=== PATIENT | male | born 1970 | race Caucasian/White ===

== ENCOUNTER 2019-04-22 09:17 | Emergency (ER) | payer BC, OTHER ==
--- NOTE | 2019-04-22 10:02 | EDM.PDOC ---
ED HPI GENERAL MEDICAL PROBLEM - General Chief Complaint: Lower Extremity Injury/Pain Stated Complaint: RIGHT ANKLE INJURY Time Seen by Provider: 04/22/19 09:38 Source of Information: Reports: Patient History Limitations: Reports: No Limitations - History of Present Illness INITIAL COMMENTS - FREE TEXT/NARRATIVE: The patient presents with right ankle pain. He was at work this morning and was walking around his truck on uneven ground and he inverted his right ankle. He did fall but only injured his ankle. He has swelling and pain to the ankle. He could not walk on it after. Onset: Sudden Duration: Hour(s): Location: Reports: Lower Extremity, Right (ankle) Quality: Reports: Sharp Severity: Moderate Improves with: Reports: Immobilization Worsens with: Reports: Heat Therapy Context: Reports: Trauma (Inverted right ankle) Associated Symptoms: Reports: No Other Symptoms Right Ankle Pain Score (Numeric/FACES): 4 - Related Data Allergies Allergy/AdvReac Type Severity Reaction Status Date / Time No Known Allergies Allergy Verified 04/22/19 09:35 Home Meds: Home Meds Carvedilol [Coreg] 6.25 mg PO DAILY 04/22/19 [History] Fluticasone Furoate [Flonase Sensimist] 1 spray NASBOTH BID 04/22/19 [History] Lisinopril [Prinivil] 20 mg PO DAILY 04/22/19 [History] Olopatadine [Patanol 0.1% Ophth Soln] 1 drop EYEBOTH DAILY 04/22/19 [History] Rosuvastatin [Crestor] 20 mg PO DAILY 04/22/19 [History] Testosterone Cypionate 200 mg IM ASDIRECTED 04/22/19 [History] buPROPion HCl [Wellbutrin SR] 150 mg PO Q12H 04/22/19 [History] Past Medical History Cardiovascular History: Reports: High Cholesterol, Hypertension Musculoskeletal History: Reports: Fracture Oncologic (Cancer) History: Reports: Other (See Below) Other Oncologic History: testicular cancer. - Infectious Disease History Infectious Disease History: Reports: Chicken Pox - Past Surgical History HEENT Surgical History: Reports: Tonsillectomy Social & Family History - Tobacco Use Smoking Status *Q: Current Every Day Smoker Years of Tobacco use: 30 Packs/Tins Daily: 1 Second Hand Smoke Exposure: Yes - Caffeine Use Caffeine Use: Reports: Coffee - Recreational Drug Use Recreational Drug Use: No Review of Systems - Review of Systems Review Of Systems: See Below Constitutional: Reports: No Symptoms Eyes: Reports: No Symptoms Ears: Reports: No Symptoms Nose: Reports: No Symptoms Mouth/Throat: Reports: No Symptoms Respiratory: Reports: No Symptoms Cardiovascular: Reports: No Symptoms GI/Abdominal: Reports: No Symptoms Genitourinary: Reports: No Symptoms Musculoskeletal: Reports: Other (right ankle swelling and pain) ED EXAM, GENERAL - Physical Exam Exam: See Below Exam Limited By: No Limitations General Appearance: Alert, No Apparent Distress Ears: Normal External Exam Nose: Normal Inspection Head: Atraumatic, Normocephalic Neck: Normal Inspection Respiratory/Chest: No Respiratory Distress Extremities: Other (Moderate edema to the right lateral malleolus. Good sensation and pulses distally. Pain and mild edema to the right medial malleolus.) Course - Vital Signs Last Recorded V/S: Last Vital Signs Temp 97.3 F 04/22/19 09:30 Pulse 74 04/22/19 09:30 Resp 16 04/22/19 09:30 BP 146/91 H 04/22/19 09:30 Pulse Ox 96 04/22/19 09:30 - Orders/Labs/Meds Orders: Active Orders 24 hr Category Date Time Status Durable Medical Equipment for Discharge [DME for Oth 04/22/19 11:07 Ordered Discharge] [COMM] Stat - Re-Assessments/Exams Free Text/Narrative Re-Assessment/Exam: 04/22/19 10:01 I ordered an x-ray of his right ankle. 04/22/19 11:04 The x-ray shows swelling and a small chip fracture of the medial malleolus. I will get him in a splint and crutches. Departure - Departure Time of Disposition: 11:10 Disposition: Home, Self-Care 01 Condition: Good Clinical Impression: Right ankle sprain Qualifiers: Encounter type: initial encounter Involved ligament of ankle: unspecified ligament Qualified Code(s): S93.401A - Sprain of unspecified ligament of right ankle, initial encounter - Discharge Information *PRESCRIPTION DRUG MONITORING PROGRAM REVIEWED*: No *COPY OF PRESCRIPTION DRUG MONITORING REPORT IN PATIENT CHINTAN: No Referrals: Humberto Navarro MD [Primary Care Provider] - Forms: ED Department Discharge Additional Instructions: Ice your ankle for 15 minutes every other hour while awake for 2 days. Try to elevate your ankle as much as you can for 2 days. Take tylenol or motrin for pain. Use the splint and crutches as needed for the next week. Please return if you are worse. - My Orders Last 24 Hours: My Active Orders 04/22/19 11:07 Durable Medical Equipment for Discharge [DME for Discharge] [COMM] Stat - Assessment/Plan Last 24 Hours: My Active Orders 04/22/19 11:07 Durable Medical Equipment for Discharge [DME for Discharge] [COMM] Stat
--- NOTE | 2019-04-22 11:03 | CR ---
Right ankle: Four views of the right ankle were obtained. Comparison: No previous ankle study. Soft tissue swelling is identified. Minimal cortical irregularity is seen off the distal medial malleolar tip which is suspicious for minimal nondisplaced cortical avulsion injury. No additional fracture or other bony abnormality is seen. Impression: 1. Soft tissue swelling and possible minimal cortical avulsion injury off the distal tip of the medial malleolus. 2. No additional abnormality is seen. Diagnostic code #3
== END 2019-04-22 11:20 | disposition home or self-care (01) ==
LOC: JD.ED 09:17
DX: S93.401A Sprain of unspecified ligament of right ankle, initial encounter (principal); E78.00 Pure hypercholesterolemia, unspecified; I10 Essential (primary) hypertension; F17.210 Nicotine dependence, cigarettes, uncomplicated; Z79.899 Other long term (current) drug therapy; W18.30XA Fall on same level, unspecified, initial encounter; X50.1XXA Overexertion from prolonged static or awkward postures, initial encounter; Y93.01 Activity, walking, marching and hiking; Y99.0 Civilian activity done for income or pay
CPT/HCPCS: 73610-26-RT; 73610-RT; 99283-25

== ENCOUNTER 2020-09-06 07:32 | Emergency (ER) | payer BC ==
[2020-09-06] MEDS ORDERED: Sodium Chloride 0.9% 10 ML Syringe FLUSH PRN (07:59)
[2020-09-06] MEDS ORDERED: Diltiazem 50 MG/10 ML SDV IVPUSH ONE (08:00)
[2020-09-06] MEDS ORDERED: Diltiazem 100 MG in Sodium Chloride 0.9% 100 ML IV SCH (08:00)
[2020-09-06] MEDS ORDERED: Sodium Chloride 0.9% 1,000 ML IV SCH (08:00)
--- NOTE | 2020-09-06 08:11 | EDM.PDOC ---
ED HPI GENERAL MEDICAL PROBLEM - General Chief Complaint: Cardiovascular Problem Stated Complaint: RAPID HEARTBEAT/SOB/HIGH BP Time Seen by Provider: 09/06/20 07:52 Source of Information: Reports: Patient History Limitations: Reports: No Limitations - History of Present Illness INITIAL COMMENTS - FREE TEXT/NARRATIVE: The patient presents with palpitations. The patient had open heart surgery for valve replacement and AAA repair on 08/16/20. He noticed last night that his heart was beating fast and irregular and now he feels lightheaded. He has no chest pain or shortness of breath. He has no fever, chills, cough, congestion, runny nose, abdominal pain, nausea or vomiting. He has no history of atrial fibrillation in the past. Onset: Sudden Duration: Hour(s): Severity: Moderate Improves with: Reports: None Worsens with: Reports: None Associated Symptoms: Reports: No Other Symptoms - Related Data Allergies Allergy/AdvReac Type Severity Reaction Status Date / Time No Known Allergies Allergy Verified 09/06/20 07:38 Home Meds: Home Meds Rosuvastatin [Crestor] 20 mg PO DAILY 04/22/19 [History] Testosterone Cypionate 200 mg IM ASDIRECTED 04/22/19 [History] buPROPion HCL [Wellbutrin SR] 150 mg PO Q12H 04/22/19 [History] Aspirin 1 tab PO DAILY 09/06/20 [History] Metoprolol Tartrate [Lopressor] 50 mg PO Q12HR 09/06/20 [History] Warfarin [Coumadin] 1 tab PO DAILY 09/06/20 [History] Past Medical History HEENT History: Reports: None Cardiovascular History: Reports: High Cholesterol, Hypertension Respiratory History: Reports: None Gastrointestinal History: Reports: None Genitourinary History: Reports: None Musculoskeletal History: Reports: Fracture Neurological History: Reports: None Psychiatric History: Reports: None Endocrine/Metabolic History: Reports: Obesity/BMI 30+ Hematologic History: Reports: None Immunologic History: Reports: None Oncologic (Cancer) History: Reports: Other (See Below) Other Oncologic History: testicular cancer. Dermatologic History: Reports: None - Infectious Disease History Infectious Disease History: Reports: Chicken Pox - Past Surgical History Head Surgeries/Procedures: Reports: None HEENT Surgical History: Reports: Tonsillectomy Neurological Surgical History: Reports: None Social & Family History - Family History Family Medical History: No Pertinent Family History - Tobacco Use Tobacco Use Status *Q: Former Tobacco User Years of Tobacco use: 30 Packs/Tins Daily: 1 Used Tobacco, but Quit: Yes Month/Year Tobacco Last Used: 06/13/20 - Caffeine Use Caffeine Use: Reports: Coffee - Recreational Drug Use Recreational Drug Use: No ED ROS GENERAL - Review of Systems Review Of Systems: See Below Constitutional: Reports: No Symptoms HEENT: Reports: No Symptoms Respiratory: Reports: No Symptoms Cardiovascular: Reports: Lightheadedness, Palpitations. Denies: Chest Pain Endocrine: Reports: No Symptoms GI/Abdominal: Reports: No Symptoms : Reports: No Symptoms Musculoskeletal: Reports: No Symptoms ED EXAM, GENERAL - Physical Exam Exam: See Below Exam Limited By: No Limitations General Appearance: Alert, No Apparent Distress Ears: Normal External Exam Nose: Normal Inspection Head: Atraumatic, Normocephalic Neck: Normal Inspection, Supple, Non-Tender Respiratory/Chest: No Respiratory Distress, Lungs Clear, Normal Breath Sounds Cardiovascular: Tachycardia, Irregularly Irregular GI/Abdominal: Soft, Non-Tender, No Organomegaly, No Mass Back Exam: Normal Inspection Extremities: Normal Inspection Neurological: Alert, Oriented, No Motor/Sensory Deficits #1 Interpretation EKG Date: 09/06/20 Time: 07:36 Rhythm: A-Fib Rate (Beats/Min): 128 [place]: Normal P-Wave: Absent QRS: Normal ST-T: Normal QT: Normal Course - Vital Signs Last Recorded V/S: Last Vital Signs Temp 96.9 F 09/06/20 07:46 Pulse 126 H 09/06/20 07:46 Resp 24 H 09/06/20 07:46 BP 108/88 09/06/20 07:46 Pulse Ox 100 09/06/20 07:46 - Orders/Labs/Meds Orders: Active Orders 24 hr Category Date Time Status Cardiac Monitoring [RC] . DIRECTED Care 09/06/20 07:59 Active EKG Documentation Completion [RC] STAT Care 09/06/20 07:59 Active Peripheral IV Care [RC] . DIRECTED Care 09/06/20 07:59 Active PRO B-TYPE NATRIUR PEPT,BNPPRO [CHEM] Stat Lab 09/06/20 09:49 Ordered Diltiazem [Cardizem] 100 mg Med 09/06/20 08:00 Active Sodium Chloride 0.9% [Normal Saline] 100 ml IV TITRATE Sodium Chloride 0.9% [Normal Saline] 1,000 ml Med 09/06/20 08:00 Active IV ASDIRECTED Sodium Chloride 0.9% [Saline Flush] Med 09/06/20 07:59 Active 10 ml FLUSH ASDIRECTED PRN Peripheral IV Insertion Adult [OM.PC] Stat Oth 09/06/20 07:59 Ordered Medication Orders Diltiazem HCl 100 mg/ Sodium (Chloride) 100 mls @ 10 mls/hr IV TITRATE KIERAN; Protocol Last Titration: 09/06/20 08:42 Dose: 5 mg/hr, 5 mls/hr Documented by: MARIA ALEJANDRA Admin: 09/06/20 08:12 Dose: 10 mg/hr, 10 mls/hr Documented by: LEANNA Sodium Chloride (Normal Saline) 1,000 mls @ 125 mls/hr IV ASDIRECTED KIERAN Last Admin: 09/06/20 08:11 Dose: 125 mls/hr Documented by: MYRNABIL Sodium Chloride (Saline Flush) 10 ml FLUSH ASDIRECTED PRN PRN Reason: Keep Vein Open Last Admin: 09/06/20 08:11 Dose: 10 ml Documented by: LEANNA Labs: Laboratory Tests 09/06/20 09/06/20 09/06/20 Range/Units 07:46 07:46 07:46 WBC 11.09 H (4.23-9.07) K/mm3 RBC 5.57 (4.63-6.08) M/mm3 Hgb 15.9 (13.7-17.5) gm/dl Hct 50.8 (40.1-51.0) % MCV 91.2 (79.0-92.2) fl MCH 28.5 (25.7-32.2) pg MCHC 31.3 L (32.2-35.5) g/dl RDW Std Deviation 47.9 H (35.1-43.9) fL Plt Count 332 (163-337) K/mm3 MPV 8.7 L (9.4-12.3) fl Neut % (Auto) 59.2 (34.0-67.9) % Lymph % (Auto) 27.8 (21.8-53.1) % [place] % (Auto) 9.2 (5.3-12.2) % Eos % (Auto) 2.8 (0.8-7.0) Baso % (Auto) 0.5 (0.1-1.2) % Neut # (Auto) 6.57 H (1.78-5.38) K/mm3 Lymph # (Auto) 3.08 (1.32-3.57) K/mm3 [place] # (Auto) 1.02 H (0.30-0.82) K/mm3 Eos # (Auto) 0.31 (0.04-0.54) K/mm3 Baso # (Auto) 0.05 (0.01-0.08) K/mm3 PT 33.6 H (9.7-12.0) SECONDS INR 3.21 Sodium 142 (136-145) mEq/L Potassium 4.0 (3.5-5.1) mEq/L Chloride 103 (98-107) mEq/L Carbon Dioxide 28 (21-32) mEq/L Anion Gap 15.0 (5-15) BUN 22 H (7-18) mg/dL Creatinine 1.3 (0.7-1.3) mg/dL Est Cr Clr Drug Dosing 74.01 mL/min Estimated GFR (MDRD) 59 (>60) mL/min BUN/Creatinine Ratio 16.9 (14-18) Glucose 102 (74-106) mg/dL Calcium 9.8 (8.5-10.1) mg/dL Magnesium 2.2 (1.8-2.4) mg/dl Total Bilirubin 0.3 (0.2-1.0) mg/dL AST 16 (15-37) U/L ALT 28 (16-63) U/L Alkaline Phosphatase 115 (46-116) U/L Troponin I < 0.017 (0.00-0.056) ng/mL Total Protein 7.7 (6.4-8.2) g/dl Albumin 3.6 (3.4-5.0) g/dl Globulin 4.1 gm/dL Albumin/Globulin Ratio 0.9 L (1-2) SARS-CoV-2 RNA (SMITH) (NEGATIVE) 09/06/20 Range/Units 08:42 WBC (4.23-9.07) K/mm3 RBC (4.63-6.08) M/mm3 Hgb (13.7-17.5) gm/dl Hct (40.1-51.0) % MCV (79.0-92.2) fl MCH (25.7-32.2) pg MCHC (32.2-35.5) g/dl RDW Std Deviation (35.1-43.9) fL Plt Count (163-337) K/mm3 MPV (9.4-12.3) fl Neut % (Auto) (34.0-67.9) % Lymph % (Auto) (21.8-53.1) % [place] % (Auto) (5.3-12.2) % Eos % (Auto) (0.8-7.0) Baso % (Auto) (0.1-1.2) % Neut # (Auto) (1.78-5.38) K/mm3 Lymph # (Auto) (1.32-3.57) K/mm3 [place] # (Auto) (0.30-0.82) K/mm3 Eos # (Auto) (0.04-0.54) K/mm3 Baso # (Auto) (0.01-0.08) K/mm3 PT (9.7-12.0) SECONDS INR Sodium (136-145) mEq/L Potassium (3.5-5.1) mEq/L Chloride (98-107) mEq/L Carbon Dioxide (21-32) mEq/L Anion Gap (5-15) BUN (7-18) mg/dL Creatinine (0.7-1.3) mg/dL Est Cr Clr Drug Dosing mL/min Estimated GFR (MDRD) (>60) mL/min BUN/Creatinine Ratio (14-18) Glucose (74-106) mg/dL Calcium (8.5-10.1) mg/dL Magnesium (1.8-2.4) mg/dl Total Bilirubin (0.2-1.0) mg/dL AST (15-37) U/L ALT (16-63) U/L Alkaline Phosphatase (46-116) U/L Troponin I (0.00-0.056) ng/mL Total Protein (6.4-8.2) g/dl Albumin (3.4-5.0) g/dl Globulin gm/dL Albumin/Globulin Ratio (1-2) SARS-CoV-2 RNA (SMITH) Negative (NEGATIVE) Meds: Medications Generic Name Dose Route Start Last Admin Trade Name Freq PRN Reason Stop Dose Admin Diltiazem HCl 100 mg/ Sodium 100 mls @ 10 mls/hr 09/06/20 08:00 09/06/20 08:42 Chloride IV 5 mg/hr TITRATE KIERAN 5 mls/hr Titration Protocol 10 MG/HR Sodium Chloride 1,000 mls @ 125 mls/hr 09/06/20 08:00 09/06/20 08:11 Normal Saline IV 125 mls/hr ASDIRECTED KIERAN Administration Sodium Chloride 10 ml 09/06/20 07:59 09/06/20 08:11 Saline Flush FLUSH 10 ml ASDIRECTED PRN Administration Keep Vein Open Discontinued Medications Generic Name Dose Route Start Last Admin Trade Name Freq PRN Reason Stop Dose Admin Diltiazem HCl 10 mg 09/06/20 08:00 09/06/20 08:11 Cardizem IVPUSH 09/06/20 08:01 10 mg ONETIME ONE Administration - Re-Assessments/Exams Free Text/Narrative Re-Assessment/Exam: 09/06/20 08:10 I ordered an IV NS at 125mL/hr, EKG, CXR, labs, cardizem 10mg bolus and 10mg/hr drip. His EKG shows atrial fibrillation at a rate of 128 with no acute changes. 09/06/20 09:50 His heart rate has come down into the 80s. I slowed the drip down to 5mg/hr. 09/06/20 09:51 His WBC is elevated at 11.09. His INR is elevated at 3.21. His CMP is negative. His troponin is negative. His COVID 19 is negative. He does feel better with his rate down. I called [facility] in [place] and talked with the warrant server composite bond technician Dr Black and he felt the patient should be transferred. I also talked with Dr Eisenberg the hospitalist and he agreed to the transfer. Departure - Departure Time of Disposition: 12:00 Disposition: DC/Tfer to Acute Hospital 02 Reason for Transfer *Q: Other Condition: Fair Clinical Impression: Atrial fibrillation with RVR Referrals: Humberto Navarro MD [Primary Care Provider] - Forms: ED Department Discharge Sepsis Event Note (ED) - Evaluation Sepsis Screening Result: No Definite Risk - Focused Exam Vital Signs: Vital Signs Temp Pulse Resp BP Pulse Ox 09/06/20 07:46 96.9 F 126 H 24 H 108/88 100 - My Orders Last 24 Hours: My Active Orders 09/06/20 07:59 Cardiac Monitoring [RC] . DIRECTED EKG Documentation Completion [RC] STAT Peripheral IV Care [RC] . DIRECTED Sodium Chloride 0.9% [Saline Flush] 10 ml FLUSH ASDIRECTED PRN Peripheral IV Insertion Adult [OM.PC] Stat 09/06/20 08:00 Diltiazem [Cardizem] 100 mg Sodium Chloride 0.9% [Normal Saline] 100 ml IV TITRATE Sodium Chloride 0.9% [Normal Saline] 1,000 ml IV ASDIRECTED 09/06/20 09:49 PRO B-TYPE NATRIUR PEPT,BNPPRO [CHEM] Stat - Assessment/Plan Last 24 Hours: My Active Orders 09/06/20 07:59 Cardiac Monitoring [RC] . DIRECTED EKG Documentation Completion [RC] STAT Peripheral IV Care [RC] . DIRECTED Sodium Chloride 0.9% [Saline Flush] 10 ml FLUSH ASDIRECTED PRN Peripheral IV Insertion Adult [OM.PC] Stat 09/06/20 08:00 Diltiazem [Cardizem] 100 mg Sodium Chloride 0.9% [Normal Saline] 100 ml IV TITRATE Sodium Chloride 0.9% [Normal Saline] 1,000 ml IV ASDIRECTED 09/06/20 09:49 PRO B-TYPE NATRIUR PEPT,BNPPRO [CHEM] Stat
--- NOTE | 2020-09-06 08:41 | CR ---
Chest: Portable view of the chest was obtained. Comparison: No previous chest imaging is available. Heart size and mediastinum are normal. Prior sternotomy is seen. Lungs are clear with no acute parenchymal change. Bony structures show nothing acute. Impression: 1. Prior sternotomy. 2. Nothing acute is appreciated on portable chest x-ray. Diagnostic code #2
== END 2020-09-06 13:25 ==
LOC: JD.ED 07:32
DX: I48.91 Unspecified atrial fibrillation (principal); E78.00 Pure hypercholesterolemia, unspecified; I10 Essential (primary) hypertension; E66.9 Obesity, unspecified; Z87.891 Personal history of nicotine dependence; Z79.82 Long term (current) use of aspirin; Z79.01 Long term (current) use of anticoagulants; Z79.899 Other long term (current) drug therapy; Z20.822 Contact with and (suspected) exposure to COVID-19
CPT/HCPCS: 36415; 71045; 80053; 83735; 83880; 84484; 85025; 85610; 87635; 93005; 96365; 96366; 99285; J3490; J7030; 93010; 99284; U0002